=== PATIENT | female | born 1950 | race Caucasian/White ===

== ENCOUNTER 2017-04-08 07:03 | Day surgery (SDC) | payer MEDICARE ==
[~2017-04-08] VITALS: Ht 170.2 cm; Wt 97.5 kg
[~2017-04-08 07:03] MED LIST: ADVAIR DISK1 INH; ALBUTEROL S2.5 MG/.5 IN; ANTIVERT PO; BIOTIN MAXI10000 MC1 PO; CENTRUM SILVER1 TA1 PO; CLONAZEPAM0.5 MG PO; CRESTOR20 MG PO; DICLOFENAC SODIUM1 %; FLEXERIL PO; FLUOXETINE20 MG PO; KLOR-CON M2020 MEQ PO; LASIX 20 MG20 MG/TAB PO; LEVOTHYROXIN75 MC1 PO; LIPITOR10 MG PO; MEDDOSEPAK PO; MONTELUKAST SOD10 MG PO; MUCINEX D1 TAB PO; NEURONTIN600 MG PO; ONDANSETRON4 MG PO; PROZAC10 MG PO; SEROQUEL25 MG PO; SIMBRINZA1 SUS OU; TRAVATAN Z0.004 % OU; TUSSIONEX1 ML PO; VERAPAMIL240 M1 PO; VITAMIN D35000 UNIT PO; ZONEGRAN100 M1 PO; ZYRTEC10 M5 PO
[2017-04-08 09:34] VITALS: BP 118/58
== END 2017-04-08 09:48 | disposition home or self-care (01) ==
LOC: ENDO 07:03
PROVIDERS: ATTEND Surgery
PROC: 0DJD8ZZ Inspection of Lower Intestinal Tract, Via Natural or Artificial Opening Endoscopic (ICD-10-PCS; principal; 2017-04-08)
DX: Z12.11 Encounter for screening for malignant neoplasm of colon (principal); K64.4 Residual hemorrhoidal skin tags; K57.30 Diverticulosis of large intestine without perforation or abscess without bleeding; N90.7 Vulvar cyst; E03.9 Hypothyroidism, unspecified; G47.33 Obstructive sleep apnea (adult) (pediatric)

== ENCOUNTER 2017-12-22 15:47 | Emergency (ER) | payer MEDICARE ==
[~2017-12-22] VITALS: Ht 170.2 cm; Wt 88.6 kg
[2017-12-22 16:36] LABS: HEMATOCRIT 40.6 % (37.0-47.0); HEMOGLOBIN 13.6 g/dl (12.0-16.0); IMMATURE GRANULOCYTES 0.4 % (0.0-5.0); MEAN CELL VOLUME 91.9 fL CALC (80.0-100.0); MEAN CORPUSCULAR HGB 30.8 pG CALC (26.0-32.0); MEAN CORPUSCULAR HGB CONC 33.5 g/L CALC (32.0-36.0); NEUT# 5.79 thou/uL (2.00-7.15); RED BLOOD COUNT 4.42 mill/uL (4.20-5.60); RED CELL DISTRI WIDTH 12.4 % (11.5-15.5)
[2017-12-22 16:49] LABS: ALBUMIN 4.5 g/dL (3.2-5.0); ALKALINE PHOSPHATASE 74 u/l (38-126); AMYLASE 70 u/l (30-110); ANION GAP 17 (6-22 (CALC)); BILIRUBIN, TOTAL 0.9 mg/dL (0.0-1.4); BUN 21 mg/dL (8-23); BUN/CREATININE RATIO 19 (12-20 (CALC)); CARBON DIOXIDE 20 mmol/l (22-30); CHLORIDE 105 mmol/l (95-108); CREATININE 1.2 mg/dL (0.5-1.0); GFR 45 ML/MIN (>=60 (CALC)); GFR FOR AFR.AMER. 54 ML/MIN (>=60 (CALC)); LIPASE 104 u/l (23-300); SGOT/AST 30 u/l (9-36); SODIUM 138 mmol/l (137-146); TOTAL PROTEIN 7.4 g/dL (6.3-8.2)
[2017-12-22 16:54] LABS: ACT PARTIAL THROMBO TIME 27.9 SECONDS (20.0-32.5); D-DIMER 0.43 mg/L (0.19-0.60); PROTHROMBIN TIME 10.7 SECONDS (9.0-12.5)
[2017-12-22 17:01] LABS: MYOGLOBIN 55 ng/mL (0 - 62)
[2017-12-22] MEDS ORDERED: TORADOL PO (17:25)
[2017-12-22 17:30] VITALS: BP 125/58
== END 2017-12-22 17:39 | disposition home or self-care (01) ==
LOC: ED 15:47
PROVIDERS: Family Medicine
DX: R07.89 Other chest pain (principal); R11.0 Nausea; M54.9 Dorsalgia, unspecified; E03.9 Hypothyroidism, unspecified

== ENCOUNTER 2018-05-09 00:21 | Emergency (ER) | payer MEDICARE ==
[~2018-05-09] VITALS: Ht 165.1 cm; Wt 90.0 kg
[~2018-05-09 00:21] MED LIST changes: +TORADOL PO
[2018-05-09] MEDS ORDERED: ZOMIG5 MG PO (00:30)
[2018-05-09] MEDS ORDERED: VOLTAREN - GENE75 MG PO (02:34)
[2018-05-09 02:43] VITALS: BP 127/74
== END 2018-05-09 02:44 | disposition home or self-care (01) ==
LOC: ED 00:21
DX: S63.602A Unspecified sprain of left thumb, initial encounter (principal); Y04.0XXA Assault by unarmed brawl or fight, initial encounter; Y92.009 Unspecified place in unspecified non-institutional (private) residence as the place of occurrence of the external cause

== ENCOUNTER → 2018-05-13 | Outpatient (REF) ==
[~2018-05-13] MED LIST changes: +VOLTAREN - GENE75 MG PO; +ZOMIG5 MG PO
== END | disposition home or self-care (01) | DRG 645 ==
LOC: LAB 10:06
DX: E03.9 Hypothyroidism, unspecified (principal); I10 Essential (primary) hypertension; Z11.59 Encounter for screening for other viral diseases

== ENCOUNTER 2020-04-26 11:49 | Emergency (ER) | payer MEDICARE ==
[~2020-04-26] VITALS: Ht 165.1 cm; Wt 101.0 kg
[2020-04-26 14:46] LABS: HEMATOCRIT 42.3 % (37.0-47.0); HEMOGLOBIN 13.6 g/dl (12.0-16.0); IMMATURE GRANULOCYTES 0.2 % (0.0-5.0); MEAN CORPUSCULAR HGB 30.2 pG CALC (26.0-32.0); MEAN CORPUSCULAR HGB CONC 32.2 g/dL CAL (32.0-36.0); NEUT# 3.55 thou/uL (2.00-7.15); RED BLOOD COUNT 4.5 mill/uL (4.20-5.60); RED CELL DISTRI WIDTH 12.6 % (11.5-15.5)
[2020-04-26 14:52] LABS: ALBUMIN 4.8 g/dL (3.2-5.0); ALKALINE PHOSPHATASE 62 u/l (38-126); AMYLASE 95 u/l (30-110); ANION GAP 14 (6-22 (CALC)); BILIRUBIN, TOTAL 0.9 mg/dL (0.0-1.4); BUN 13 mg/dL (8-23); BUN/CREATININE RATIO 12 (12-20 (CALC)); CARBON DIOXIDE 24 mmol/l (22-30); CHLORIDE 105 mmol/l (95-108); GFR 55 ML/MIN (>=60 (CALC)); GFR FOR AFR.AMER. > 60 ML/MIN (>=60 (CALC)); LIPASE 151 u/l (23-300); POTASSIUM 4.4 mmol/l (3.5-5.1); SGOT/AST 38 u/l (9-36); SODIUM 138 mmol/l (137-146); TOTAL PROTEIN 8.1 g/dL (6.3-8.2)
[2020-04-26] MEDS ORDERED: VENLAFAXINE HCL75 M1 PO (15:23)
[2020-04-26] MEDS ORDERED: TRAZODONE50 MG PO (15:23)
[2020-04-26] MEDS ORDERED: EFFEXOR XR75 MG/CAP PO (15:24)
[2020-04-26] MEDS ORDERED: NEURONTIN100 MG PO (15:24)
[2020-04-26] MEDS ORDERED: K-TAB20 MEQ PO (15:25)
[2020-04-26] MEDS ORDERED: LATANOPROST0.005 % OP (15:26)
[2020-04-26 16:46] VITALS: BP 119/60
== END 2020-04-26 16:53 | disposition home or self-care (01) ==
LOC: ED 11:49
PROVIDERS: Emergency Medicine
DX: R10.30 Lower abdominal pain, unspecified (principal); E03.9 Hypothyroidism, unspecified; Z90.49 Acquired absence of other specified parts of digestive tract; Z90.710 Acquired absence of both cervix and uterus; Z96.89 Presence of other specified functional implants
CPT/HCPCS: Q9967

== ENCOUNTER 2024-03-20 13:26 | Emergency (ER) | payer MEDICARE ==
[2024-03-20] VITALS (12 sets, daily range): BP systolic 138–170; BP diastolic 63–96
[~2024-03-20] VITALS: Ht 165.1 cm; Wt 96.0 kg
[~2024-03-20 13:26] MED LIST changes: +EFFEXOR XR75 MG/CAP PO; +K-TAB20 MEQ PO; +LATANOPROST0.005 % OP; +NEURONTIN100 MG PO; +TRAZODONE50 MG PO; +VENLAFAXINE HCL75 M1 PO
[2024-03-20] MEDS ORDERED: ASPIRIN 81 MG/TAB PO PRN (13:30)
[2024-03-20] MEDS ORDERED: ALUM & MAG HYDROX-SIMETHICONE 30 ML PO ONE (13:40)
[2024-03-20] MEDS ORDERED: LIDOCAINE VISCOUS 2% 15 ML UDC PO ONE (13:40)
[2024-03-20] MEDS ORDERED: ASPIRIN 81 MG/TAB PO ONE (13:50)
[2024-03-20 13:51] LABS: BASO% 0.5 % (0-3); EOS% 3.3 % (0-8); HEMATOCRIT 39.6 % (37.0-47.0); HEMOGLOBIN 12.8 g/dl (12.0-16.0); IMMATURE GRANULOCYTES 0.2 % (0.0-5.0); LYMPH% 29.7 % (15-41); MEAN CELL VOLUME 97.1 fL CALC (80.0-100.0); MEAN CORPUSCULAR HGB 31.4 pG CALC (26.0-32.0); MEAN CORPUSCULAR HGB CONC 32.3 g/dL CAL (32.0-36.0); MONO% 7.2 % (2-13); NEUT# 4.86 thou/uL (2.00-7.15); NEUT% 59.1 % (42-76); RED BLOOD COUNT 4.08 mill/uL (4.20-5.60); RED CELL DISTRI WIDTH 11.7 % (11.5-15.5)
[2024-03-20 14:06] LABS: ALBUMIN 4.4 g/dL (3.2-5.0); ALKALINE PHOSPHATASE 52 u/l (38-126); ANION GAP 12 (6-22 (CALC)); BUN 17 mg/dL (8-23); BUN/CREATININE RATIO 17 (12-20 (CALC)); CARBON DIOXIDE 24 mmol/l (22-30); CHLORIDE 106 mmol/l (95-108); ESTIMATED GFR 59 ML/MIN (>=90 (CALC)); POTASSIUM 3.9 mmol/l (3.5-5.1); SGOT/AST 35 u/l (9-36); SODIUM 138 mmol/l (137-146); TOTAL PROTEIN 7.5 g/dL (6.3-8.2)
[2024-03-20] MEDS ORDERED: PROTONIX40 MG PO (16:26)
== END 2024-03-20 16:55 | disposition home or self-care (01) ==
LOC: ED 13:26
PROVIDERS: Nurse Practitioner Family
DX: K21.9 Gastro-esophageal reflux disease without esophagitis (principal); E03.9 Hypothyroidism, unspecified; R07.9 Chest pain, unspecified